=== PATIENT | female | born 1970 | race African-American/Black ===

== ENCOUNTER 2017-02-13 08:46 | Inpatient (IN) ==
--- NOTE | 2017-02-13 09:09 | Emergency Department Note ---
Ayanna Chatterjee Emily, am scribing for, and in the presence of, Moose Rose MD 09:05. Rose Chatterjee James D, MD, personally performed the services described in this documentation, ascribed by Manjula Urena in my presence, and it is both accurate and complete 908 . Arrival - Arrival Chief Complaint: Dizziness Stated Complaint: FAINT, DIZZY ED Nursing Triage Note: Pt c/o near syncope, dizziness, pulling sensation from her head down to her right leg started 2 wks ago that occurs when she is at physical therapy for her neck. Mode of Arrival: Wheelchair Limitations: No Limitations Source: Patient, RN Notes Reviewed Time Seen by Provider: 02/13/17 08:57 - History of Present Illness HPI Narrative: Pt is a 46 y/o female who came to ED with c/o dizziness, nausea, MARKHAM that onset about 2 weeks ago. Pt notes dizziness has been worse with physical therapy ( from Dr. Smallwood in [place], [place]) for neck, and movements of head up and down. She also reports sitting still and walking short distances causes dizziness, however, regular gait is nml per pt. Pt has associated sxs of nausea , near syncope sensation and intermittent DERAS. Pt denies smoking or DM. PMHx of HLD, anxiety disorder. Onset (ago): week(s) Consistency: intermittent Severity: mild Severity scale (1-10): 3 Quality: other (dizziness) Date of Last Menstrual Period: HYST Allergies/Adverse Reactions: Allergies Allergy/AdvReac Type Severity Reaction Status Date / Time No Known Allergies Allergy Verified 06/01/15 19:11 Home Medications: Home Medications Medication Instructions Recorded Confirmed Type Lansoprazole [Prevacid] 30 mg PO DAILY 11/29/14 01/11/17 History Magnesium Oxide 400 mg PO DAILY PRN 12/16/15 01/11/17 History Ascorbic Acid [Vitamin C] 500 mg PO DAILY 07/23/16 01/22/17 History Cholecalciferol (Vitamin D3) 1,000 unit PO DAILY 07/23/16 01/11/17 History [Vitamin D3] Pre/Probiotic 1 Gummy Chew 1 each PO DAILY 07/23/16 01/11/17 History Amitriptyline [Elavil] 10 mg PO BEDTIME PRN 01/22/17 01/22/17 History Review of System - Review of System 12 point system: reviewed and no additional remarkable complaints except as stated - Review of System Constitutional: Absent: chills, fever Respiratory: Absent: cough, respiratory distress Cardiovascular: Present: dyspnea on exertion. Absent: chest pain, syncope ( near syncope sensation) Gastrointestinal: Present: nausea. Absent: abdominal pain, vomiting Musculoskeletal: Absent: arm pain Skin: Absent: rash Neurological: Present: headache (intermittent), other (dizziness with sitting still, physcial therapy movements of head, and walking short distances). Absent : abnormal gait Medical,Surgical,& Family Hx - Medical History Cardio: History of: Cardiovascular Problems (palpations) No history of: Cardiac Dysrhythmia Psychological: History of: Anxiety Disorders No history of: Bipolar Disorder, Depression, Schizophrenia Neurology: No history of: Seizures HEENT: History of: Eye Problem (GLASSES), Dental Problems (PARTIAL UPPER) Endocrine: History of: Dyslipidemia Gastrointestinal: History of: GERD (dysphagia, hiatal hernia), GI Problems ( DYSPHAGIA, HIATAL HERNIA) No history of: Hepatitis, Liver Problems Musculoskeletal: History of: Back/Neck Problems (Chronic pain in back and neck) , Musculoskeletal Problems (RIGHT ankle fracture) Hematology: No history of: Blood Transfusion Reaction Reproductive: History of: Ovarian Cysts No history of: Breast Cancer, Reproductive Cancer Other: No history of: Anesthesia Reactions, Cancer - Surgical History Cardiac Surgeries: Patient Denies: Cardiac Catheterization HEENT Surgeries: Patient denies: Eye Surgery, Tonsilectomy & Adenoidectomy Abdominal Surgeries: Surgical HX of: Abdominal Surgery, Cholecystectomy, EGD Patient denies: Appendectomy, Colonoscopy, Gastric Bypass Surgery, Hernia Repair Reproductive Surgeries: Surgical HX of;: Section (X1), Gynecologic Surgery, Hysterectomy (PARTIAL, removal of ovaries on 11/30/14), Tubal Ligation Patient denies;: Breast Surgery, Genitourinary Surgery Orthopedic Surgeries: Patient denies;: Orthopedic Surgery - Family History Family History: Reports;: Family Cancer (aunt-lung, grandfather-prostate,, uncle -panceratic), Family Diabetes (MOM), Family Heart Disease (father), Family Hypertension (MOM), Family Stroke (DAD) Denies;: Family Anesthesia Reaction - Social History Smoking Status: Never smoker Functional capacity: independent ambulation Exam Vital Signs: Vital Signs Temperature 97.4 F L 02/13/17 08:58 Pulse Rate 100 H 08/30/17 09:30 Respiratory Rate 16 02/13/17 08:58 Blood Pressure 145/86 02/13/17 09:30 O2 Sat by Pulse Oximetry 100 02/13/17 08:47 GENERAL: This is a well-nourished well-developed white female in no apparent distress. VITAL SIGNS: Reviewed HEENT: Head is atraumatic and normocephalic. Pupils are equal round react to light. Extraocular movements are intact. Sunburst conjunctiva oropharynx is benign with moist mucous membranes. NECK: Neck is soft and supple without tenderness. There are no masses. There is no lymphadenopathy. LUNGS: Lungs are clear to auscultation. Chest rises symmetrically. There is no chest wall tenderness. CV: Heart is regular rate and rhythm without murmurs rubs or gallops. ABDOMEN: Abdomen is soft, nontender to palpation. There are no abdominal abnormal masses palpated. There is no organomegaly. Bowel sounds are present and active. SKIN: Skin is warm and dry. No rash. EXTREMITIES: Patient has full range of motion without tenderness. There is no pedal edema. NEUROLOGIC: Awake alert and oriented 4. Cranial nerves II through XII are grossly intact. Motor is 5 over 5 in all extremities bilaterally. Symptoms are reproducible with patient extending at the neck. Deep tendon reflexes are 2 + and bilaterally equal. Course - Consultations Consultation #1: Discussed with hospitalist. Patient will be admitted to their service. Time: 11:18 Results - Labs CBC & BMP: 02/13/17 09:11 02/13/17 09:11 Lab Results: I have reviewed the patients labs Labs: Laboratory Tests 02/13/17 09:11 WBC 5.5 RBC 4.41 Hgb 13.7 Hct 41.9 Plt Count 214 Baso % (Auto) 1.3 H Laboratory Tests 02/13/17 09:11 Sodium 142 Potassium 3.7 Chloride 105 Carbon Dioxide 31 Anion Gap 9.7 BUN 9 Creatinine 0.90 GFR Calculation 106 BUN/Creatinine Ratio 10.00 Glucose 96 Calculated Osmolality 281.1 Calcium 9.4 Total Bilirubin < 0.39 AST 20 ALT 32 Alkaline Phosphatase 121 H Troponin I < 0.015 Total Protein 8.2 Albumin 3.8 Globulin 4.4 H Albumin/Globulin Ratio 0.8 L Laboratory Tests 02/13/17 02/13/17 09:11 09:33 INR 1.0 PT Patient/Control Mix 10.0 Blood Type O POSITIVE Antibody Screen Negative - EKG EKG results: interpreted by ERMD - Impressions EKG: Sinus tachycardia with a rate of 114, nonspecific ST-T wave changes, normal axis. - Diagnostic Findings Procedure: Chest x-ray: image reviewed by me, report reviewed by me (No acute cardiopulmonary pathology identified.), CT: image reviewed by me, report reviewed by me (CTA of the cervical: CTA of the head: Mild to moderate atherosclerotic irregularity and narrowing of the basliar artery without definite focal occlusion or high-grade stenosis. Diffuse atherosclerotic changes otherwise. Neck CTA: No hemodynamically significant stenosis of the common or internal carotid arteries. [place] vertebral arteries bilaterally without obvious focal stenosis or occlusion.) Disposition Clinical Impression: Lightheadedness, Vertebrobasilar insufficiency, Heme positive stool, Heme positive stool Case discussed with: patient Disposition: Still a Patient Condition: Stable
[2017-02-13 09:34] LABS: Basophils # 0.1 10*3/uL (0.0-0.2); Basophils % 1.3 % (0.0-0.8); Eosinophils # 0.2 10*3/uL (0.0-0.87); Eosinophils % 3.3 % (0.00-10.9); Hematocrit 41.9 VOL% (35.7-47.0); Hemoglobin 13.7 GM/DL (12.0-16.0); Immature Granulocytes % 0.4 %; Immature Granulocytes Absolute 0.02 #; Lymphocytes # 2.3 10*3/uL (1.4-4.0); Lymphocytes % 41.7 % (21.3-54.2); Mean Corpuscular HGB Conc 32.7 GM/DL (32-36); Mean Corpuscular Hemoglobin 31 PG (27-34); Mean Platelet Volume 10.4 FL (9.6-12.0); Monocytes # 0.4 10*3/uL (0.11-0.8); Monocytes % 6.4 % (1.7-12.7); Neutrophils # 2.6 10*3/uL (1.4-7.4); Neutrophils % 46.9 % (38.7-73.9); Platelet Count 214 T/CUMM (130-400); Red Blood Count 4.41 MC/CUMM (3.8-5.5); Red Cell Distribution Width 13.6 % (9.3-17.3); White Blood Count 5.5 T/CUMM (4-12)
--- NOTE | 2017-02-13 09:41 | EKG Report ---
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
--- NOTE | 2017-02-13 09:52 | XRay Report ---
Portable chest Date: 02/13/2017 Clinical history: Syncope Comparison: 06/02/2016 Technique: Portable AP sitting chest Findings: The heart is normal in size. The lungs and mediastinum are stable in appearance. No acute osseous findings. Impression: No acute cardiopulmonary pathology identified. PROCEDURE INTERPRETED AT [facility] DEPARTMENT OF RADIOLOGY Final Report Signed by: Dr. Merle Girard
[2017-02-13 10:03] LABS: Alanine Aminotransferase 32 U/L (13-56); Albumin 3.8 G/DL (3.4-5.0); Alkaline Phosphatase 121 U/L (45-117); Aspartate Amino Transferase 20 U/L (0-37); Bilirubin,Total < 0.39 MG/DL (0.2-1.0); Blood Urea Nitrogen 9 MG/DL (7-18); Calcium 9.4 MG/DL (8.5-10.1); Glucose 96 MG/DL (74-106); Osmolality,Calculated 281.1 MOS/KG (273-304); Potassium 3.7 MMOL/L (3.5-5.1); Sodium 142 MMOL/L (136-145); Total Protein 8.2 G/DL (6.4-8.3); Troponin I Only < 0.015 NG/ML (0.00-0.045)
--- NOTE | 2017-02-13 10:26 | CT Report ---
History: Vertebrobasilar syndrome Date: 02/13/2017 Study: CT angiogram neck with IV contrast Comparison exam: No previous similar Thin spiral CT sections were obtained through the neck during the dynamic administration of 80 mL Omnipaque 350 IV contrast. Multiplanar reconstruction images are also evaluated. 3-D images were also generated, archived, and analyzed. This CT exam was performed using one or more the following dose reduction techniques: Automated exposure control, adjustment of the MA and/or KV according to patient size, or use of iterative reconstruction technique. There is normal arch anatomy. There is no hemodynamically significant stenosis at the origins of the great vessels. There is no significant stenosis of the common carotid arteries. There is 0% diameter reduction narrowing of the internal carotid arteries using NASCET criteria. The normal right ICA measures 4.8 mm; the normal left measures 4.2 mm. There is no obvious high-grade stenosis at the origin of either vertebral artery. The vertebral arteries are generally patent without obvious focal stenosis or occlusion. There is no soft tissue mass at the cervical level. There is moderate degenerative disc narrowing and anterior spondylosis at C5-C6 and C6-C7. Impression: No hemodynamically significant stenosis of the common or internal carotid arteries. Patent vertebral arteries bilaterally without obvious focal stenosis or occlusion PROCEDURE INTERPRETED AT [facility] DEPARTMENT OF RADIOLOGY Final Report Signed by: Dr. Cortney Barfield
[2017-02-13 10:35] LABS: Barbiturates Screen,Urine Negative (Negative); Benzodiazepines Screen,Urine Negative (Negative); Cannabinoid Screen,Urine Negative (Negative); Opiate Screen,Urine Negative (Negative); Phencyclidine Screen,Urine Negative (Negative)
--- NOTE | 2017-02-13 10:42 | CT Report ---
History: Vertebrobasilar syndrome Date: 02/13/2017 Study: CT angiogram head with IV contrast Comparison exam: No previous similar Thin spiral CT sections were obtained through the head during the dynamic administration of 80 mL Omnipaque 350 IV contrast. Multiplanar reconstruction images are also evaluated. 3-D images were also generated, archived, and analyzed. This CT exam was performed using one or more the following dose reduction techniques: Automated exposure control, adjustment of the MA and/or KV according to patient size, or use of iterative reconstruction technique. There is mild to moderate atherosclerotic irregularity and narrowing of the basilar artery without focal occlusion or definite high-grade stenosis. There is no basilar tip aneurysm. The distal right vertebral artery is diminutive in size. There is flow within the anterior inferior cerebellar arteries bilaterally. There is mild atherosclerotic irregularity and narrowing of the distal internal carotid arteries bilaterally without occlusion or definite high-grade stenosis. Flow is noted within the anterior, middle, and posterior cerebral arteries bilaterally. 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 There is no patent cerebral artery aneurysm. There is mild peripheral atherosclerotic irregularity of the cerebral vasculature without a definite focal high-grade [place] stenosis. Evaluation of the brain shows the ventricles to be midline in position without evidence of hydrocephalus. There is no obvious mass or parenchymal hemorrhage. There is opacification of the major venous sinuses. Impression: Mild to moderate atherosclerotic irregularity and narrowing of the basilar artery without definite focal occlusion or high-grade stenosis. Diffuse atherosclerotic changes otherwise PROCEDURE INTERPRETED AT [facility] DEPARTMENT OF RADIOLOGY Final Report Signed by: Dr. Cortney Barfield
[2017-02-13] MEDS ORDERED: BISACODYL 5 MG TABLET PO ONE ×2 (12:00→19:30)
--- NOTE | 2017-02-13 14:58 | Hospitalist History & Physical ---
<Sharon Riley - Last Filed: 02/13/17 14:20> Assessment and Plan (1) Heme positive stool Status: Acute Assessment and plan: Pt. will be admitted to the med surg unit. Monitored bed. Consult GI. IVF. Clear liquids for now. Serial h&hs. Continue to monitor. Current Visit: Yes (2) Lightheadedness Status: Acute Assessment and plan: Monitored bed. Orthostatic vitals. Current Visit: Yes (3) Anxiety Status: Chronic Current Visit: No History of Present Illness Chief complaint: History from History of present illness: Ms. Claudette Chang is a 46 year old black female with a history of anxiety, palpitations, and HLD that presented to the ED for complaints of dizziness, pena , and intermittent nausea that started 2 weeks ago. Pt. is accompanied by daughter. Pt. states that she does physical therapy with Dr. Smallwood and the dizziness has worsened since she started. She states that she has also experienced increasing periods shortness of breath on exertion. Pt. does have associated symptoms of nausea and syncope and headache. Pt denies chest pain, fever, chills, night sweats, and abdominal pain Pt. also reports neck pain and numbness and tingling to right side that has been ongoing for a yr. During exam in the ED, pt noted to have a hem positive stool. Pt. reports a recent EGD on 01/[address] Read. Pt. also reports seeing bright red blood in 2 stool weeks ago but none since then. She also denies nosebleeds, blood in urine, or any purnima bleeding. Pt's case has been discussed with Dr. Rose and Dr. Kramer. The patient has been accepted onto our service. Pt's home medications have been reviewed and reconciled. Home Medications Medication Instructions Recorded Confirmed Type Lansoprazole [Prevacid] 30 mg PO QAM 11/29/14 02/13/17 History Cholecalciferol (Vitamin D3) 2,000 unit PO QAM 07/23/16 02/13/17 History [Vitamin D3] Pre/Probiotic 1 Gummy Chew 1 each PO QAM 07/23/16 02/13/17 History Magnesium Oxide 400 mg SL QAM 02/13/17 02/13/17 History Allergies Allergy/AdvReac Type Severity Reaction Status Date / Time No Known Allergies Allergy Verified 06/01/15 19:11 Medical,Surgical,& Family Hx - Medical History Cardio: History of: Cardiovascular Problems (palpations) No history of: Cardiac Dysrhythmia Psychological: History of: Anxiety Disorders No history of: Bipolar Disorder, Depression, Schizophrenia Neurology: No history of: Seizures HEENT: History of: Eye Problem (GLASSES), Dental Problems (PARTIAL UPPER) Endocrine: History of: Dyslipidemia Gastrointestinal: History of: GERD (dysphagia, hiatal hernia), GI Problems ( DYSPHAGIA, HIATAL HERNIA) No history of: Hepatitis, Liver Problems Musculoskeletal: History of: Back/Neck Problems (Chronic pain in back and neck) , Musculoskeletal Problems (RIGHT ankle fracture) Hematology: No history of: Blood Transfusion Reaction Reproductive: History of: Ovarian Cysts No history of: Breast Cancer, Reproductive Cancer Other: No history of: Anesthesia Reactions, Cancer - Surgical History Cardiac Surgeries: Patient Denies: Cardiac Catheterization HEENT Surgeries: Patient denies: Eye Surgery, Tonsilectomy & Adenoidectomy Abdominal Surgeries: Surgical HX of: Abdominal Surgery, Cholecystectomy, EGD Patient denies: Appendectomy, Colonoscopy, Gastric Bypass Surgery, Hernia Repair Reproductive Surgeries: Surgical HX of;: Section (X1), Gynecologic Surgery, Hysterectomy (PARTIAL, removal of ovaries on 11/30/14), Tubal Ligation Patient denies;: Breast Surgery, Genitourinary Surgery Orthopedic Surgeries: Patient denies;: Orthopedic Surgery - Family History Family History: Reports;: Family Cancer (aunt-lung, grandfather-prostate,, uncle -panceratic), Family Diabetes (MOM), Family Heart Disease (father), Family Hypertension (MOM), Family Stroke (DAD) Denies;: Family Anesthesia Reaction - Social History Smoking Status: Never smoker Frequency of Alcohol Use: Occasionally Type of Drug Use: None Marital Status: Lives With:: Spouse Functional capacity: independent ambulation - Constitutional Constitutional: Present: weakness. Absent: chills, fever(s), night sweats - EENT Eyes: Present: requires corrective lense Ears: Absent: decreased hearing Nose, mouth and throat: Present: headache(s) - Cardiovascular Cardiovascular: Absent: chest pain at rest - Respiratory Respiratory: Present: dyspnea. Absent: cough - Gastrointestinal Gastrointestinal: Present: abdominal pain, nausea. Absent: vomiting - Genitourinary Genitourinary: Absent: difficulty urinating - Neurological Neurological: Present: dizziness. Absent: confusion - Psychiatric Psychiatric: Present: anxiety Exam - Constitutional Vitals: Period Temp Pulse Resp BP Sys/Diop Pulse Ox Last 24 Hr 97.4 F-97.4 F 100-129 16-16 108-180/86-99 100 General appearance: no acute distress, over weight - Head Head exam: Present: normal inspection, normocephalic - Eye Eye exam: Present: EOMI Pupils: Present: SORIN - ENT ENT exam: Present: normal exam - Respiratory Respiratory exam: Present: clear to auscultation bilaterally. Absent: wheezes - Cardiovascular Cardiovascular exam: Present: regular rate and rhythm - GI/Abdominal GI/Abdominal exam: Present: normal bowel sounds, soft. Absent: tenderness - Extremities Exam Extremities exam: Present: normal capillary refill. Absent: edema - Back Exam Back exam: Present: normal inspection - Neurological Exam Neurological exam: Present: alert, oriented X3 - Psychiatric Psychiatric exam: Present: normal affect, normal mood - Skin Skin exam: Present: normal color, warm, dry Results - Labs CBC & BMP: 02/13/17 09:11 02/13/17 09:11 Lab Results: I have reviewed the past 24 hour labs <Hebert Burden - Last Filed: 02/13/17 17:26> Assessment and Plan - Time spent with patient Time spent with patient: Greater than 30 minutes (1) Vertigo Status: Acute Assessment and plan: IV fluids. Meclizine. Consult ENT. Add Flonase Current Visit: Yes (2) HTN (hypertension) Status: Acute Current Visit: No Qualifiers: Hypertension type: essential hypertension Qualified Code(s): I10 - Essential (primary) hypertension (3) GERD (gastroesophageal reflux disease) Status: Chronic Assessment and plan: Continue PPI. Current Visit: No (4) Heme positive stool Status: Acute Current Visit: Yes History of Present Illness Chief complaint: Dizziness, nausea History of present illness: Ms. Claudette Chang is a 46 year old female that came to the emergency room this morning with complaints of dizziness and nausea without vomiting. She felt like she was in a pass out. Her symptoms are worsened with head movement. She has a history of eustachian tube dysfunction and has been seen by ENT. She also had a recent endoscopy by Dr. Read. This showed a Postop diagnosis: 1. Gastroesophageal reflux disease-continue PPI treatment antireflux precautions 2. Esophageal stricture-repeat dilatation on as-needed basis She also reports some blood in her stool. Her hemoglobin is stable. I do not think she has symptomatic anemia or symptomatic acute blood loss. This appears to be vertigo and likely related to her inner ear disease. I have consult to Dr. GONZALEZ. The patient also describes Cervical radiculopathy for which she is undergoing physical therapy. She had an MRI done as an outpatient recently that showed Multilevel disc disease with bulging and/or small protrusion present and intervertebral aspect spurring at C4-5 C5-6 and C6-7 and C7-T1. Her primary care physician is Dr. Mayfield in [place]. Home medications were reviewed and reconciled. She is a full code. Her daughter was present at the bedside during the time of my evaluation. 12 point system: reviewed and no additional remarkable complaints except as stated Exam - Constitutional Vitals: Period Temp Pulse Resp BP Sys/Diop Pulse Ox Last 24 Hr 97.4 F-98.4 F 78-129 16-18 108-180/69-99 96-100 Exam: Constitutional System: No distress. No tremulousness. Head: Normocephalic, atraumatic. Ears, Nose and Throat System: No pain or tenderness. No epistaxis or discharge Eyes System: Pupils equal, round, and reactive. Extraocular muscles intact. Neck: Supple, without adenopathy, No jugular venous distention. No thyromegaly, neck mass, or prior surgery apparent. Respiratory System: Chest clear to auscultation. Cardiovascular System: Heart with regular rate and rhythm. No murmur. GI System: Abdomen soft, nontender. Normo active bowel sounds present. Musculoskeletal System: limbs with no pedal edema. Full distal pulses. Normal capillary refill. Neurological System: No discernable sensory deficit. No aphasia Psychiatric System: Conversation is rational Results - Labs CBC & BMP: 02/13/17 09:11 02/13/17 09:11 Lab Results: I have reviewed the past 24 hour labs
[2017-02-13] MEDS ORDERED: ACETAMINOPHEN 325 MG TABLET PO PRN (15:16)
[2017-02-13] MEDS ORDERED: ONDANSETRON 4 MG/2 ML VIAL IV PRN (15:16)
[2017-02-13] MEDS: SODIUM CHLORIDE 0.9% 1,000 ML IV SCH ×2 (15:31→23:18)
--- NOTE | 2017-02-13 15:43 | Gastrointestinal Consult Note ---
<Flower Lowe - Last Filed: 02/13/17 15:41> Assessment and Plan (1) Heme positive stool Status: Acute Assessment and plan: 02/13-Admitted with onset of dizziness and lightheadedness with findings of heme positive stool and report of small amt bright red rectal bleeding two weeks prior. History of esophageal stricture with recent EGD 01/22 with findings of GERD. HH stable at . Plan and addendum to follow by Dr Read. Current Visit: Yes History of Present Illness Chief complaint: Heme positive stools History of present illness: Ms. Claudette Chang is a 46 year old female who was admitted to the hospital with two week history of nausea and sudden onset of dizziness today. Pt states that she was in her usual state of health until two weeks ago when she had a fairly slow onset of nausea. Patient states that today, she was at physical therapy for her shoulders, and during some of the exercises she had an onset of dizziness and lightheadedness. This is also associated with nausea therefore she came to the emergency room for further evaluation. Patient also brought forth during admission, that she has had an increase in shortness of breath as of recent with exertion. She states that the nausea is not associated with vomiting and denies any associated abdominal pain. She has a history of GERD as well as esophageal stricture and has had multiple dilations in the past with most recent EGD being earlier this month with findings of GERD, and esophageal stricture with dilation. Patient states that she takes Prevacid daily for her reflux which fairly controls her symptoms. She also states that the recent dilation did improve her dysphagia however she is having some early satiety or with eating still. She also states that as of recent she has noticed an increase in some belching and bloating, dyspepsia symptoms. Patient denies any melena or hematochezia however she does state that a couple weeks ago after having a bowel movement, she did notice some bright red blood. She states that that is the only occasion she is seen this and is not occurred since. She felt at that time is possibly related to a hemorrhoid or possible small tear following her bowel movement. She denies any recent weight loss, fever or chills. She denies taking any anticoagulants and states that she only takes occasional children's ibuprofen liquid on rare occasions for generalized pain. Her H&H is stable at 13/41. She was also noted on admission to be somewhat tachycardic with some orthostatic hypotension. She has never had a colonoscopy done in the past. Denies a family history of colon cancer as well. Home Medications Medication Instructions Recorded Confirmed Type Lansoprazole [Prevacid] 30 mg PO QAM 11/29/14 02/13/17 History Cholecalciferol (Vitamin D3) 2,000 unit PO QAM 07/23/16 02/13/17 History [Vitamin D3] Pre/Probiotic 1 Gummy Chew 1 each PO QAM 07/23/16 02/13/17 History Magnesium Oxide 400 mg SL QAM 02/13/17 02/13/17 History Allergies Allergy/AdvReac Type Severity Reaction Status Date / Time No Known Allergies Allergy Verified 06/01/15 19:11 Medical,Surgical,& Family Hx - Medical History Cardio: History of: Cardiovascular Problems (palpations) No history of: Cardiac Dysrhythmia Psychological: History of: Anxiety Disorders No history of: Bipolar Disorder, Depression, Schizophrenia Neurology: No history of: Seizures HEENT: History of: Eye Problem (GLASSES), Dental Problems (PARTIAL UPPER) Endocrine: History of: Dyslipidemia Gastrointestinal: History of: GERD (dysphagia, hiatal hernia), GI Problems ( DYSPHAGIA, HIATAL HERNIA) No history of: Hepatitis, Liver Problems Musculoskeletal: History of: Back/Neck Problems (Chronic pain in back and neck) , Musculoskeletal Problems (RIGHT ankle fracture) Hematology: No history of: Blood Transfusion Reaction Reproductive: History of: Ovarian Cysts No history of: Breast Cancer, Reproductive Cancer Other: No history of: Anesthesia Reactions, Cancer - Surgical History Cardiac Surgeries: Patient Denies: Cardiac Catheterization HEENT Surgeries: Patient denies: Eye Surgery, Tonsilectomy & Adenoidectomy Abdominal Surgeries: Surgical HX of: Abdominal Surgery, Cholecystectomy, EGD Patient denies: Appendectomy, Colonoscopy, Gastric Bypass Surgery, Hernia Repair Reproductive Surgeries: Surgical HX of;: Section (X1), Gynecologic Surgery, Hysterectomy (PARTIAL, removal of ovaries on 11/30/14), Tubal Ligation Patient denies;: Breast Surgery, Genitourinary Surgery Orthopedic Surgeries: Patient denies;: Orthopedic Surgery - Family History Family History: Reports;: Family Cancer (aunt-lung, grandfather-prostate,, uncle -panceratic), Family Diabetes (MOM), Family Heart Disease (father), Family Hypertension (MOM), Family Stroke (DAD) Denies;: Family Anesthesia Reaction - Social History Smoking Status: Never smoker Frequency of Alcohol Use: Occasionally Type of Drug Use: None 12 point system: reviewed and no additional remarkable complaints except as stated - Constitutional Constitutional: Present: as per HPI - EENT Eyes: Present: as per HPI Ears: Present: as per HPI Nose, mouth and throat: Present: as per HPI - Cardiovascular Cardiovascular: Present: as per HPI - Respiratory Respiratory: Present: as per HPI - Gastrointestinal Gastrointestinal: Present: as per HPI - Genitourinary Genitourinary: Present: as per HPI - Musculoskeletal Musculoskeletal: Present: as per HPI - Neurological Neurological: Present: as per HPI, dizziness - Psychiatric Psychiatric: Present: as per HPI - Endocrine Endocrine: Present: as per HPI - Hematologic/Lymphatic Hematologic/Lymphatic: Present: as per HPI Exam - Constitutional Vitals: Period Temp Pulse Resp BP Sys/Diop Pulse Ox Last 24 Hr 97.4 F-97.4 F 78-129 16-18 108-180/69-99 100-100 General appearance: normal weight, no acute distress - Head Head exam: Present: normal inspection, normocephalic - Eye Eye exam: Present: other (lids and conjunctiva unremarkable). Absent: scleral icterus - ENT ENT exam: Present: normal exam, normal oropharynx - Neck Neck exam: Present: normal inspection - Respiratory Respiratory exam: Present: clear to auscultation bilaterally. Absent: rales, rhonchi, wheezes - Cardiovascular Cardiovascular exam: Present: regular rate and rhythm. Absent: diastolic murmur , JVD, systolic murmur - GI/Abdominal GI/Abdominal exam: Present: normal bowel sounds, soft. Absent: ascites, distended, mass, organomegaly, tenderness - Extremities Exam Extremities exam: Present: normal inspection, full ROM - Back Exam Back exam: Present: normal inspection - Neurological Exam Neurological exam: Present: alert, oriented X3 - Psychiatric Psychiatric exam: Present: normal affect, normal mood - Skin Skin exam: Present: normal color, warm, dry Results - Labs CBC & BMP: 02/13/17 09:11 02/13/17 09:11 Lab Results: I have reviewed the past 24 hour labs <Juan Read - Last Filed: 02/13/17 18:18> History of Present Illness History of present illness: Ms. Claudette Chang is a 46 year old female Exam - Constitutional Vitals: Period Temp Pulse Resp BP Sys/Diop Pulse Ox Last 24 Hr 97.4 F-98.4 F 78-129 16-18 108-180/69-99 96-100 Results - Labs CBC & BMP: 02/13/17 17:04 02/13/17 09:11
[2017-02-13] MEDS ORDERED: MECLIZINE 25 MG TABLET PO PRN (17:21)
[2017-02-13 17:25] LABS: Hematocrit 39.5 VOL% (35.7-47.0); Hemoglobin 13.3 GM/DL (12.0-16.0)
[2017-02-13] MEDS ORDERED: POLYETHYLENE GLYCOL POWDER 255 GM BOTTLE PO ONE (18:00)
[2017-02-13] MEDS: FLUTICASONE 50 MCG NASAL SPRAY 16 GM BOTTLE BOTH NARES SCH (21:23)
[2017-02-13 22:23] LABS: Bacteria,Urine Occasional /HPF (Few); Bilirubin,Urine Negative (Negative); Blood, Urine NEGATIVE (Negative); Glucose,Urine (UA) Negative (Negative); Ketones,Urine Negative (Negative); Nitrite,Urine Negative (Negative); Protein,Urine Negative; Squamous Epithelial Cell,Urine Occasional /HPF (0-10); Urine Color Yellow (Yellow); Urine Specific Gravity 1.005 (1.001-1.035); WBC,Urine 1 /HPF (0-6)
[2017-02-13 22:24] LABS: Apearance,Urine Clear (Clear); Urine Urobilinogen 0.2 EU/DL (0.2-1.0)
[2017-02-13 22:46] LABS: Hematocrit 37.4 VOL% (35.7-47.0); Hemoglobin 12.4 GM/DL (12.0-16.0)
[2017-02-14 04:49] LABS: Basophils # 0.1 10*3/uL (0.0-0.2); Basophils % 1.2 % (0.0-0.8); Eosinophils # 0.1 10*3/uL (0.0-0.87); Eosinophils % 2.2 % (0.00-10.9); Hematocrit 40.5 VOL% (35.7-47.0); Hemoglobin 13.2 GM/DL (12.0-16.0); Immature Granulocytes % 0.2 %; Immature Granulocytes Absolute 0.01 #; Lymphocytes # 2.1 10*3/uL (1.4-4.0); Lymphocytes % 36.3 % (21.3-54.2); Mean Corpuscular HGB Conc 32.6 GM/DL (32-36); Mean Corpuscular Hemoglobin 31 PG (27-34); Mean Corpuscular Volume 95.3 FL (87-102); Mean Platelet Volume 10.3 FL (9.6-12.0); Monocytes # 0.4 10*3/uL (0.11-0.8); Monocytes % 6.9 % (1.7-12.7); Neutrophils # 3.1 10*3/uL (1.4-7.4); Neutrophils % 53.2 % (38.7-73.9); Platelet Count 233 T/CUMM (130-400); Red Blood Count 4.25 MC/CUMM (3.8-5.5); Red Cell Distribution Width 13.3 % (9.3-17.3); White Blood Count 5.9 T/CUMM (4-12)
[2017-02-14 05:37] LABS: Calcium 8.9 MG/DL (8.5-10.1); Magnesium 1.9 MG/DL (1.8-2.4); Potassium 3.7 MMOL/L (3.5-5.1); Risk Ratio 3.56; Thyroid Stimulating Hormone 3.15 uIU/ml (0.358-3.74)
[2017-02-14] MEDS: SODIUM CHLORIDE 0.9% 1,000 ML IV SCH (07:32)
[2017-02-14] MEDS ORDERED: PANTOPRAZOLE 40 MG TABLET PO SCH (09:00)
[2017-02-14] MEDS: FLUTICASONE 50 MCG NASAL SPRAY 16 GM BOTTLE BOTH NARES SCH (09:29)
--- NOTE | 2017-02-14 09:50 | History and Physical Update ---
History and Physical Update - Physical Exam Mental Status: alert and oriented Heart: regular rate and rhythm Lung: clear to auscultation Abdomen: within normal limits Vitals: within normal limits
--- NOTE | 2017-02-14 09:52 | Operative Note ---
Date of procedure: 02/14/17 Pre-op diagnosis: Rectal bleeding Procedure: Colonoscopy with hot biopsy polypectomy 46-year-old female admitted with lightheaded dizziness rectal bleeding now for colonoscopy to further evaluate. Informed symptoms obtained patient She was sedated with MAC anesthesia per anesthesia protocol. Patient placed in left lateral decubitus position digital exam revealed no rectal masses the Olympus flexible video colonoscope [place] canal vessel direct vision level cecum. Withdrawal time 8 minutes Prep fair to good Findings: Cecum-normal mucosa identified by ileocecal valve and appendiceal orifice. Terminal ileum-normal Descending colon-normal Transverse colon-normal Descending colon-normal Sigmoid colon-normal Rectum-5 mm polyp hot biopsy fulgurated remaining rectum normal dye retroflexed views. 2+ hemorrhoids are seen no active bleeding. The procedure terminated placed our procedure well she is discharged recovery in good condition. Postop diagnosis: 1. Colon [id number] polyp path repeat C scope in 5 years 2. Internal hemorrhoids-likely source of rectal bleeding treat symptomatically with sitz baths and Anusol as needed. Avoid straining at stools using stool softeners as needed. Importance of maintaining adequate fiber and fluid was stressed 3. Okay to discharge from my standpoint. Call for follow-up as needed. Anesthesia: MAC Surgeon / Physician: Juan Read Estimated blood loss: none Specimens: other (Rectal polyp) Condition: stable Disposition: post procedure unit Results - Labs CBC & BMP: 02/14/17 04:37 02/14/17 04:37 Discharge Plan - Discharge Medications No Action Lansoprazole [Prevacid] 30 mg PO QAM Pre/Probiotic 1 Gummy Chew 1 each PO QAM Cholecalciferol (Vitamin D3) [Vitamin D3] 2,000 unit PO QAM Magnesium Oxide 400 mg SL QAM - Follow Up or Referral - Forms/Instructions
--- NOTE | 2017-02-14 09:54 | Anesthesia Post-Op ---
Anesthesia Post OP - Post Ansesthetic Evaluation Patient seen in post op: Yes Resp: within normal limits CV: within normal limits Mental: within normal limits Temp: within normal limits [id number]: within normal limits Nausea and Vomiting: within normal limits Pain: within normal limits
[2017-02-14 10:28] VITALS: BP 118/080
--- NOTE | 2017-02-14 11:45 | Discharge Summary ---
Hospital Course - Hospital Course Hospital Course: 46-year-old -[place] female admitted through the emergency department after she presented with dizziness and a feeling of passing out. The patient has a history of eustachian tube dysfunction and describes vertigo symptoms of dizziness with associated nausea. She was admitted to the hospital for further evaluation and treatment. She also reported heme positive stools. She was seen in consultation by gastroenterology and underwent a colonoscopy by Dr. Read. Colonoscopy revealed a polyp without evidence of bleeding and internal hemorrhoids which were thought to be the cause of the blood in stool. She has been advised to start fiber supplements, stool softeners, and avoid straining. Sits baths were also recommended. She will follow-up with Dr. Read for biopsy results and should have a repeat colonoscopy in 5 years. For her vertigo , she was started on meclizine and Flonase. She has established care with Dr. GONZALEZ and should follow-up with him as an outpatient. Her home medications were reviewed and reconciled. No changes were made to her home medications except the addition of meclizine and Flonase. Those were electronically prescribed. Patient is a full code. - Time spent with patient Time with patient DS: Greater than 30 minutes (Total discharge time for this patient, including [id number] time, clinical documentation, medication reconciliation, and discharge planning was 34 minutes.) Diagnosis - Discharge Diagnosis (1) Vertigo Status: Acute (2) HTN (hypertension) Status: Chronic (3) GERD (gastroesophageal reflux disease) Status: Chronic (4) Heme positive stool Status: Resolved (5) Colon polyp Status: Chronic (6) Internal hemorrhoid Status: Chronic Discharge Plan - Discharge Data Disposition: Disch To Home/Self Care Condition at Discharge: Stable Discharge Diet: advance to your usual diet Activity: resume usual activities as tolerated Hygiene: no restrictions Weight Bearing at Discharge: full weight bearing Driving: no restrictions Contact your physician if you experience:: fever over 101, Nausea/Vomiting, Shortness of breath, pain uncontrolled by pain medications - Discharge Medications New Fluticasone 50 Mcg Nasal [place] [Flonase Nasal [place]] 1 spray BOTH NARES BID # 1 bottle Meclizine [Antivert] 25 mg PO BID PRN #30 tablet PRN Reason: Dizziness Continue Lansoprazole [Prevacid] 30 mg PO QAM Pre/Probiotic 1 Gummy Chew 1 each PO QAM Cholecalciferol (Vitamin D3) [Vitamin D3] 2,000 unit PO QAM Magnesium Oxide 400 mg SL QAM - Follow Up or Referral - Forms/Instructions Exam - Constitutional Vitals: Period Temp Pulse Resp BP Sys/Diop Pulse Ox Last 24 Hr 97.1 F-98.4 F 69-101 12-20 99-144/61-080 93-100 Discharge Results Procedures and tests throughout hospitalization: Pending Orders 02/15/17 04:00 Basic Metabolic Panel IN AM Comp Blood Count Auto Diff IN AM Labs on day of discharge: Labs from last 24 hours 02/14/17 02/14/17 02/14/17 04:37 04:37 04:37 WBC RBC Hgb Hct MCV MCH MCHC RDW Plt Count MPV Neut % (Auto) Lymph % (Auto) [place] % (Auto) Eos % (Auto) Baso % (Auto) Neut # (Auto) Lymph # (Auto) [place] # (Auto) Eos # (Auto) Baso # (Auto) Immature Gran % Nucleated RBC % Immature Gran # Nucleated RBCs # Immature Plt Fraction Sodium 143 Potassium 3.7 Chloride 109 H Carbon Dioxide 27 Anion Gap 10.7 BUN 7 Creatinine 0.80 GFR Calculation 123 BUN/Creatinine Ratio 8.00 Glucose 94 Hemoglobin A1c 6.2 Calculated Osmolality 282.0 Calcium 8.9 Magnesium 1.9 Triglycerides 85 Cholesterol 256 H LDL Cholesterol 162.0 VLDL Cholesterol 17.0 HDL Cholesterol 72 H Heart Disease Risk Ratio 3.56 Free T4 0.87 TSH 3rd Generation 3.150 Urine Color Urine Appearance Urine pH Ur Specific [place] Urine Protein Urine Glucose (UA) Urine Ketones Urine Blood Urine Nitrate Urine Bilirubin Urine Urobilinogen Urine Leukocytes Urine WBC Ur Squamous Epith Cells Urine Bacteria Ur Culture Indicated? 02/14/17 02/13/17 02/13/17 04:37 22:25 22:00 WBC 5.9 RBC 4.25 Hgb 13.2 12.4 Hct 40.5 37.4 MCV 95.3 MCH 31 MCHC 32.6 RDW 13.3 Plt Count 233 MPV 10.3 Neut % (Auto) 53.2 Lymph % (Auto) 36.3 [place] % (Auto) 6.9 Eos % (Auto) 2.2 Baso % (Auto) 1.2 H Neut # (Auto) 3.1 Lymph # (Auto) 2.1 [place] # (Auto) 0.4 Eos # (Auto) 0.1 Baso # (Auto) 0.1 Immature Gran % 0.2 Nucleated RBC % 0.0 Immature Gran # 0.01 Nucleated RBCs # 0.00 Immature Plt Fraction 0.0 Sodium Potassium Chloride Carbon Dioxide Anion Gap BUN Creatinine GFR Calculation BUN/Creatinine Ratio Glucose Hemoglobin A1c Calculated Osmolality Calcium Magnesium Triglycerides Cholesterol LDL Cholesterol VLDL Cholesterol HDL Cholesterol Heart Disease Risk Ratio Free T4 TSH 3rd Generation Urine Color Yellow Urine Appearance Clear Urine pH 6.0 Ur Specific [place] 1.005 Urine Protein Negative Urine Glucose (UA) Negative Urine Ketones Negative Urine Blood Negative Urine Nitrate Negative Urine Bilirubin Negative Urine Urobilinogen 0.2 Urine Leukocytes Negative Urine WBC 1 Ur Squamous Epith Cells Occasional Urine Bacteria Occasional Ur Culture Indicated? Not indicated 02/13/17 17:04 WBC RBC Hgb 13.3 Hct 39.5 MCV MCH MCHC RDW Plt Count MPV Neut % (Auto) Lymph % (Auto) [place] % (Auto) Eos % (Auto) Baso % (Auto) Neut # (Auto) Lymph # (Auto) [place] # (Auto) Eos # (Auto) Baso # (Auto) Immature Gran % Nucleated RBC % Immature Gran # Nucleated RBCs # Immature Plt Fraction Sodium Potassium Chloride Carbon Dioxide Anion Gap BUN Creatinine GFR Calculation BUN/Creatinine Ratio Glucose Hemoglobin A1c Calculated Osmolality Calcium Magnesium Triglycerides Cholesterol LDL Cholesterol VLDL Cholesterol HDL Cholesterol Heart Disease Risk Ratio Free T4 TSH 3rd Generation Urine Color Urine Appearance Urine pH Ur Specific [place] Urine Protein Urine Glucose (UA) Urine Ketones Urine Blood Urine Nitrate Urine Bilirubin Urine Urobilinogen Urine Leukocytes Urine WBC Ur Squamous Epith Cells Urine Bacteria Ur Culture Indicated? DS: Provider Date of admission: 02/13/17 11:52 Primary care physician: Merle Tan NP Attending physician on admission: Sonny Kramer MD Consults: 02/13/17 15:16 Consult to Physical Therapy [CONS] Routine Reason for Physical Therapy: Evaluate and Treat Consult to Physician [CONS] Routine Comment: Consulting Provider: Juan Read Person Notified: DR READ HAS SEEN THIS PATIENT Date Notified: 02/13/17 Time Notified: 15:38 02/13/17 17:19 Consult to Physician [CONS] Routine Comment: Vertigo, eustachian tube dysfunction Consulting Provider: Thomas Gonzalez Consulting Provider Notified: Yes When should Consulting Provider be notified: Now Consult to Specialist Group: ENT When should Consulting Provider be notified: Now Person Notified: MINI Date Notified: 02/14/17 Time Notified: 08:38 Discharging clinician: Hebert Burden MD Expected date of discharge: 02/14/17
[2017-02-14] MEDS ORDERED: PROPOFOL 200 MG/20 ML VIAL IV ONE (11:52)
[2017-02-14] MEDS ORDERED: LIDOCAINE 2% 5 ML VIAL ONE (11:52)
--- NOTE | 2017-02-15 12:23 | Pathology Report from [facility] ---
[facility] ACCESSION # : [id number] PATIENT NAME : Kate Hernandez ORDERING DR : ZION JEFFERSON MD CLINICAL HX: #NAME? POST-OP DX: Same SPECIMEN INFO: Colon polyp rectum GROSS DESCRIPTION: Received in formalin labeled KATE LEES is a 0.2 x 0.2 cm [place] tissue fragment submitted in one cassette. DIAGNOSIS FOR KATE LEES: COLON POLYP RECTUM: Hyperplastic polyp; much shear artifact present. COLLECTED DATE: 02/14/2017 [facility] REPORT DATE: 02/15/2017 ELECTRONICALLY SIGNED BY: Maeve Henderson M.D. 02/15/2017 - 10:20:33 [facility]BLE HOSPITALFrancisco Javier
--- NOTE | 2017-02-20 08:30 | Physician Query Form ---
CLICK EDIT DOCUMENT TO SELECT QUERY ANSWER --> OK --> SIGN Emily Valle RN Clinical Chef Teacher W) [phone] (f) [phone] [email or web address]: Make your selection(s) from the choices in EACH section by typing an "x" and enter comments in the comment section. Please use your independent medical judgment in providing your response. This request does not imply that any particular answer is desired or expected. 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: For weight reduction recommend [id number] calories, 180-200 g CHO Other Documentation: "Morbid Obesity" "Overweight" "Normal Weight" Please clarify for BMI of 40.2 If applicable, please provide an associated diagnosis related to the abnormal BMI: BMI of 40 or greater: ( ) Overweight ( ) Obesity ( X) Morbid//Severe Obesity ( ) Obesity with Alveolar Hypoventilation ( ) Weight Gain ( ) BMI is not significant ( ) Other, please specify: ( ) Clinically unable to determine COMMENTS: PLEASE ALSO DOCUMENT RESPONSE IN PROGRESS NOTES AND/OR DISCHARGE SUMMARY Use of terms such as suspected, likely, or probable (associated with a specific diagnosis that is being evaluated, monitored, or treated as if it exists) are acceptable and can be restated in the discharge summary if not ruled out. MTDD
== END 2017-02-14 12:49 | disposition home or self-care (01) | DRG 149 ==
LOC: N.ED 08:46 → N.EDINP 11:52 → SUATTDRO 11:52 → N.EDINP 14:30 → N.4E 15:02
PROVIDERS: ADMIT Internal Medicine; ATTEND Family Medicine

== ENCOUNTER 2017-11-05 15:58 | Observation (INO) ==
[2017-11-05] MEDS ORDERED: NITROGLYCERIN 2% OINT 1 INCH/GM PACK TOP STA (17:03)
[2017-11-05] MEDS ORDERED: MORPHINE 4 MG/1 ML VIAL IV STA (17:03)
[2017-11-05] MEDS ORDERED: ONDANSETRON 4 MG/2 ML VIAL IV STA (17:03)
[2017-11-05] MEDS ORDERED: ASPIRIN 325 MG TABLET PO STA (17:03)
[2017-11-05] MEDS ORDERED: ALUM/MAG/SIMETH/LIDO VISC 1:1 30 ML BOTTLE PO STA (17:03)
[2017-11-05] MEDS ORDERED: METOPROLOL TARTRATE 25 MG TABLET PO STA (17:03)
[2017-11-05 17:16] LABS: Basophils # 0.1 10*3/uL (0.0-0.2); Basophils % 1.1 % (0.0-0.8); Eosinophils # 0.1 10*3/uL (0.0-0.87); Eosinophils % 1.6 % (0.00-10.9); Hematocrit 41.3 VOL% (35.7-47.0); Hemoglobin 13.4 GM/DL (12.0-16.0); Immature Granulocytes % 0.2 %; Immature Granulocytes Absolute 0.01 #; Mean Corpuscular HGB Conc 32.4 GM/DL (32-36); Mean Corpuscular Hemoglobin 31 PG (27-34); Mean Corpuscular Volume 95.2 FL (87-102); Mean Platelet Volume 11.1 FL (9.6-12.0); Monocytes # 0.4 10*3/uL (0.11-0.8); Monocytes % 6.9 % (1.7-12.7); Neutrophils # 3.5 10*3/uL (1.4-7.4); Neutrophils % 57.2 % (38.7-73.9); Platelet Count 228 T/CUMM (130-400); Red Blood Count 4.34 MC/CUMM (3.8-5.5); Red Cell Distribution Width 13.1 % (9.3-17.3); White Blood Count 6.2 T/CUMM (4-12)
[2017-11-05 17:25] LABS: INR 0.9; PT Patient Result 9.9 SECS
[2017-11-05 17:30] LABS: Alanine Aminotransferase 39 U/L (13-56); Albumin 3.9 G/DL (3.4-5.0); Alkaline Phosphatase 96 U/L (45-117); Aspartate Amino Transferase 26 U/L (0-37); Bilirubin,Total < 0.39 MG/DL (0.2-1.0); Blood Urea Nitrogen 8 MG/DL (7-18); Glucose 85 MG/DL (74-106); Osmolality,Calculated 279.1 MOS/KG (273-304); Potassium 3.5 MMOL/L (3.5-5.1); Sodium 142 MMOL/L (136-145)
[2017-11-05] MEDS ORDERED: ASPIRIN EC 81 MG TABLET PO PRN (18:51)
[2017-11-05] MEDS ORDERED: ONDANSETRON 4 MG/2 ML VIAL IV PRN (18:57)
[2017-11-05] MEDS ORDERED: hydrALAZINE 20 MG/1 ML VIAL IV PRN (19:05)
[2017-11-05] MEDS ORDERED: NITROGLYCERIN SL 0.4 MG TABLET SL PRN (19:05)
[2017-11-05 19:07] LABS: Apearance,Urine CLEAR (Clear); Bilirubin,Urine Negative (Negative); Blood, Urine Negative (Negative); Glucose,Urine (UA) Negative (Negative); Ketones,Urine Negative (Negative); Mucus,Urine Occasional /LPF (Occasional); Nitrite,Urine Negative (Negative); Protein,Urine Negative; RBC,Urine 3 /HPF (0-4); Squamous Epithelial Cell,Urine Occasional /HPF (0-10); Urine Color Yellow (Yellow); Urine Specific Gravity 1.011 (1.001-1.035); Urine Urobilinogen < 2.0 EU/DL (0.2-1.0); WBC,Urine <1 /HPF (0-6)
[2017-11-05] MEDS ORDERED: SODIUM CHLORIDE 0.9% 1,000 ML IV SCH (19:30)
[2017-11-05] MEDS ORDERED: ENOXAPARIN 40 MG/0.4 ML SYRINGE SUBCUT SCH (21:00)
[2017-11-06 04:53] LABS: Basophils # 0.1 10*3/uL (0.0-0.2); Eosinophils # 0.1 10*3/uL (0.0-0.87); Eosinophils % 2.2 % (0.00-10.9); Hematocrit 36.7 VOL% (35.7-47.0); Hemoglobin 12.1 GM/DL (12.0-16.0); Immature Granulocytes % 0.2 %; Immature Granulocytes Absolute 0.01 #; Lymphocytes # 2.5 10*3/uL (1.4-4.0); Lymphocytes % 50.1 % (21.3-54.2); Mean Corpuscular Hemoglobin 31 PG (27-34); Mean Corpuscular Volume 94.1 FL (87-102); Mean Platelet Volume 11.2 FL (9.6-12.0); Monocytes # 0.4 10*3/uL (0.11-0.8); Monocytes % 7.6 % (1.7-12.7); Neutrophils % 38.9 % (38.7-73.9); Platelet Count 206 T/CUMM (130-400); Red Cell Distribution Width 13.2 % (9.3-17.3)
[2017-11-06 05:39] LABS: Calcium 8.4 MG/DL (8.5-10.1); Osmolality,Calculated 283.8 MOS/KG (273-304); Potassium 3.6 MMOL/L (3.5-5.1); Risk Ratio 3.75; VLDL CHOLESTEROL 17.8 MG/DL
[2017-11-06] MEDS ORDERED: LACTOBACILLUS ACIDOPHILUS/BULGARICUS CHEW TABLET PO SCH (09:00)
[2017-11-06] MEDS ORDERED: FLUTICASONE 50 MCG NASAL SPRAY 16 GM BOTTLE BOTH NARES SCH (09:00)
[2017-11-06] MEDS ORDERED: MONTELUKAST 10 MG TABLET PO SCH (09:00)
[2017-11-06] MEDS ORDERED: NON-FORMULARY MEDICATION (Lansoprazole [Prevacid] 30 MG) PO SCH (09:00)
[2017-11-06] MEDS ORDERED: PANTOPRAZOLE 40 MG TABLET PO SCH (09:00)
[2017-11-06] MEDS ORDERED: MAGNESIUM OXIDE 400 MG TABLET PO SCH (09:00)
[2017-11-06 17:22] VITALS: BP 109/72
== END 2017-11-06 17:23 | disposition home or self-care (01) ==
LOC: N.EDINP 15:58 → N.ED 15:58 → N.TELES 19:49
PROVIDERS: ADMIT Internal Medicine; ATTEND Internal Medicine

== ENCOUNTER 2020-11-12 11:15 | Inpatient (IN) ==
[2020-11-12] MEDS ORDERED: ALUM/MAG/SIMETH/LIDO VISC 1:1 30 ML BOTTLE PO STA (12:25)
[2020-11-12] MEDS ORDERED: chlorproMAZINE INJ 25 MG in SODIUM CHLORIDE 0.9% 100 ML IV STA (13:42)
[2020-11-12] MEDS ORDERED: SODIUM CHLORIDE 0.9% 1,000 ML IV STA (13:43)
[2020-11-12 14:29] LABS: Basophils # 0.1 10*3/uL (0.0-0.2); Basophils % 1.1 % (0.0-0.8); Eosinophils % 0.7 % (0.00-10.9); Hematocrit 41.3 VOL% (35.7-47.0); Hemoglobin 13.4 GM/DL (12.0-16.0); Immature Granulocytes % 0.2 %; Immature Granulocytes Absolute 0.01 #; Lymphocytes # 1.8 10*3/uL (1.4-4.0); Lymphocytes % 32.5 % (21.3-54.2); Mean Corpuscular HGB Conc 32.4 GM/DL (32-36); Mean Corpuscular Volume 95.4 FL (87-102); Mean Platelet Volume 10.6 FL (9.6-12.0); Monocytes % 5.5 % (1.7-12.7); Platelet Count 208 T/CUMM (130-400); Red Blood Count 4.33 MC/CUMM (3.8-5.5); White Blood Count 5.5 T/CUMM (4-12)
[2020-11-12 14:52] LABS: Albumin 3.6 G/DL (3.4-5.0); Bilirubin,Total 0.5 MG/DL (0.2-1.0); Calcium 9.5 MG/DL (8.5-10.1); Osmolality,Calculated 277.3 MOS/KG (273-304); Potassium 3.7 MMOL/L (3.5-5.1); Total Protein 7.8 G/DL (6.4-8.2)
[2020-11-12] MEDS ORDERED: PANTOPRAZOLE 40 MG VIAL IV STA (16:27)
[2020-11-12] MEDS ORDERED: METOPROLOL TARTRATE 5 MG/5 ML VIAL IV STA (16:27)
[2020-11-12] MEDS ORDERED: FAMOTIDINE 20 MG/2 ML VIAL IV STA (16:27)
[2020-11-12] MEDS ORDERED: METOPROLOL TARTRATE 5 MG/5 ML VIAL IV ONE (16:30)
[2020-11-12] MEDS ORDERED: DICYCLOMINE 20 MG TABLET PO PRN (16:30)
[2020-11-12] MEDS ORDERED: NICOTINE 21 MG/24 HR PATCH TRANSDERM PRN (16:57)
[2020-11-12] MEDS ORDERED: diphenhydrAMINE CAP 25 MG CAPSULE PO PRN (16:57)
[2020-11-12] MEDS ORDERED: PROMETHAZINE 25 MG TABLET PO PRN (16:57)
[2020-11-12] MEDS ORDERED: ONDANSETRON 4 MG/2 ML VIAL IV PRN (16:57)
[2020-11-12] MEDS ORDERED: ZALEPLON 5 MG CAPSULE PO PRN (16:57)
[2020-11-12] MEDS ORDERED: guaiFENesin/DM ER 600-30 MG TABLET PO PRN (16:57)
[2020-11-12] MEDS ORDERED: MORPHINE 4 MG/1 ML VIAL IV PRN (16:57)
[2020-11-12] MEDS ORDERED: hydrALAZINE 20 MG/1 ML VIAL IV PRN (16:57)
[2020-11-12] MEDS ORDERED: ACETAMINOPHEN 325 MG TABLET PO PRN (16:57)
[2020-11-12] MEDS ORDERED: DEXTROSE 50% 25 GM/50 ML VIAL IV PRN (16:57)
[2020-11-12] MEDS ORDERED: GLUCAGON 1 MG VIAL IM PRN (16:57)
[2020-11-12] MEDS ORDERED: ENOXAPARIN 40 MG/0.4 ML SYRINGE SUBCUT SCH (17:00)
[2020-11-12] MEDS ORDERED: PNEUMOCOCCAL VACCINE (13 VALENT) 0.5 ML SYRINGE IM ONE (18:44)
[2020-11-13 05:36] LABS: Basophils # 0.1 10*3/uL (0.0-0.2); Basophils % 1.2 % (0.0-0.8); Eosinophils # 0.1 10*3/uL (0.0-0.87); Eosinophils % 2.7 % (0.00-10.9); Hematocrit 37.2 VOL% (35.7-47.0); Immature Granulocytes % 0.5 %; Immature Granulocytes Absolute 0.02 #; Lymphocytes # 1.9 10*3/uL (1.4-4.0); Lymphocytes % 46.2 % (21.3-54.2); Mean Corpuscular HGB Conc 32.3 GM/DL (32-36); Mean Corpuscular Volume 95.9 FL (87-102); Mean Platelet Volume 10.7 FL (9.6-12.0); Monocytes % 8.3 % (1.7-12.7); Neutrophils % 41.1 % (38.7-73.9); Platelet Count 180 T/CUMM (130-400); Red Blood Count 3.88 MC/CUMM (3.8-5.5); Red Cell Distribution Width 13.3 % (9.3-17.3); White Blood Count 4.1 T/CUMM (4-12)
[2020-11-13 05:55] LABS: Calcium 8.9 MG/DL (8.5-10.1); Osmolality,Calculated 277.3 MOS/KG (273-304); Potassium 3.9 MMOL/L (3.5-5.1)
[2020-11-13] MEDS ORDERED: CHOLECALCIFEROL 1,000 UNIT TABLET PO SCH (09:00)
[2020-11-13] MEDS ORDERED: MAGNESIUM OXIDE 400 MG TABLET PO SCH (09:00)
[2020-11-13] MEDS ORDERED: COENZYME Q10 100 MG CAPSULE PO SCH (09:00)
[2020-11-13] MEDS ORDERED: ASCORBIC ACID 500 MG TABLET PO SCH (09:00)
[2020-11-13] MEDS ORDERED: BISACODYL 5 MG TABLET PO SCH (09:00)
[2020-11-13 12:09] VITALS: BP 103/62
[2020-11-14] MEDS ORDERED: ROSUVASTATIN 10 MG TABLET PO SCH (09:00)
== END 2020-11-13 13:05 | disposition home or self-care (01) | DRG 392 ==
LOC: N.EDINP 11:15 → N.ED 11:15 → SUATTDRO 16:57 → N.3E 17:26
PROVIDERS: ADMIT Internal Medicine; ATTEND Internal Medicine